=== PATIENT | male | born 1955 | race Caucasian/White ===

== ENCOUNTER 2016-12-23 09:33 | Emergency (ER) | payer SELFPAY ==
--- NOTE | 2016-12-23 10:05 | Emergency Department Record ---
History of Present Illness - General Chief Complaint: Fall Injury Stated Complaint: BACK PAIN/FALL Time Seen by Provider: 12/23/16 09:56 Mode of Arrival: Ambulatory - History of Present Illness Initial Comments: fell over backward off the ladder 3 feet high and landed on driveway. This happened at work in [facility]. 4 pm yesterday and pain got worse throught the night. Patient has lumbar spine pain . No LOC no neck or thoracic spine pain. right pelvix pain and some right lower quad pain. No vomiting and ate this AM without problems banana and coffee Complaint: Fall Onset/Timin -: Days(s) Fall From: From height (distance) Fall Witnessed: No Place Fall Occurred: Home Loss of Consciousness: None Prolonged Down Time?: No Symptoms Prior to Fall: None Location: Back, Pelvis, Buttocks Severity: Severe Severity scale (1-10): >10 Quality: Aching Associated Symptoms: Shortness of breath - Hyder Coma Scale Eye Response: (4) Open spontaneously Motor Response: (6) Obeys commands Verbal Response: (5) Oriented Hyder Total: 15 - Related Data Previous Rx's Medication Instructions Recorded Cyclobenzaprine HCl [Flexeril] 10 mg PO TID #30 tablet 12/23/16 Hydrocodone/Acetaminophen [[place] 1 each PO Q4HR #30 tablet 12/23/16 7.5-325 Tablet] Allergies Allergy/AdvReac Type Severity Reaction Status Date / Time No Known Drug Allergies Allergy Verified 12/23/16 09:48 Travel Screening - Travel/Exposure Within Last 30 Days Have you traveled within the last 30 days?: No - Travel/Exposure Within Last Year Have you traveled outside the [place] in the last year?: No - Additonal Travel Details Have you been exposed to anyone with a communicable illness?: No - Travel Symptoms Symptom Screening: None Review of Systems Reviewed: No additional complaints except as noted below Constitutional: Reports: As per HPI. Denies: Chills, Fever, Malaise, Night sweats, Weakness, Weight change Eyes: Reports: As per HPI. Denies: Eye discharge, Eye pain, Photophobia, Vision change ENT: Reports: As per HPI. Denies: Congestion, Dental pain, Ear pain, Epistaxis , Hearing loss, Throat pain Respiratory: Reports: As per HPI. Denies: Cough, Dyspnea, Hemoptysis, Stridor, Wheezes Cardiovascular: Reports: As per HPI. Denies: Arrhythmia, Chest pain, Dyspnea on exertion, Edema, Murmurs, Orthopnea, Palpitations, Paroxysmal nocturnal dyspnea, Rheumatic Fever, Syncope Endocrine: Reports: As per HPI. Denies: Fatigue, Heat or cold intolerance, Polydipsia, Polyuria Gastrointestinal: Reports: As per HPI. Denies: Abdominal pain, Constipation, Diarrhea, Hematemesis, Hematochezia, Melena, Nausea, Vomiting Genitourinary: Reports: As per HPI. Denies: Dysuria, Frequency, Hematuria, Incontinence, Retention, Testicular pain, Testicular mass, Urgency Musculoskeletal: Reports: As per HPI, Back pain. Denies: Arthralgia, Gout, Joint swelling, Myalgia, Neck pain Skin: Reports: As per HPI. Denies: Bruising, Change in color, Change in hair/ nails, Lesions, Pruritus, Rash Neurological: Reports: As per HPI. Denies: Abnormal gait, Confusion, Headache, Numbness, Paresthesias, Seizure, Tingling, Tremors, Vertigo, Weakness Psychiatric: Reports: As per HPI. Denies: Anxiety, Auditory hallucinations, Depression, Homicidal thoughts, Suicidal thoughts, Visual hallucinations Hematological/Lymphatic: Reports: As per HPI. Denies: Anemia, Blood Clots, Easy bleeding, Easy bruising, Swollen glands Past Medical History - SOCIAL HISTORY Smoking Status: Current every day smoker Alcohol Use: None Drug Use: None - RESPIRATORY Hx Respiratory Disorders: No - CARDIOVASCULAR Hx Cardio Disorders: Yes Comment:: murmer pt was told - NEURO Hx Neuro Disorders: No - GI Hx GI Disorders: No - Hx Genitourinary Disorders: No - ENDOCRINE Hx Endocrine Disorders: No - MUSCULOSKELETAL Hx Musculoskeletal Disorders: No - PSYCH Hx Psych Problems: No - HEMATOLOGY/ONCOLOGY Hx Hematology/Oncology Disorders: No Family Medical History Any Significant Family History?: No Physical Exam - General General Appearance: Alert, Oriented x3, Cooperative, Mild distress - Head Head exam: Normal inspection - Eye Eye exam: Normal appearance, PERRL Pupils: Normal accommodation - ENT ENT exam: Normal exam, Mucous membranes moist, Normal external ear exam, Normal orophraynx, TM's normal bilaterally Ear exam: Normal external inspection. negative: External canal tenderness Nasal Exam: Normal inspection. negative: Discharge, Sinus tenderness Mouth exam: Normal external inspection, Tongue normal Teeth exam: Normal inspection. negative: Dental caries Throat exam: Normal inspection. negative: Tonsillar erythema, Tonsillar exudate - Neck Neck exam: Normal inspection, Full ROM. negative: Tenderness - Respiratory Respiratory exam: Normal lung sounds bilaterally. negative: Respiratory distress - Cardiovascular Cardiovascular Exam: Regular rate, Normal rhythm, Normal heart sounds - GI/Abdominal GI/Abdominal exam: Soft, Normal bowel sounds. negative: Tenderness - Rectal Rectal exam: Deferred - exam: Deferred - Extremities Extremities exam: Normal inspection, Full ROM, Normal capillary refill. negative: Tenderness - Back Back exam: Reports: Normal inspection, Full ROM, Muscle spasm, Tenderness ( lumbar spine and right side of pelvis). Denies: Rash noted - Neurological Neurological exam: Alert, Normal gait, Oriented X3, Reflexes normal - Psychiatric Psychiatric exam: Normal affect, Normal mood - Skin Skin exam: Dry, Intact, Normal color, Warm Course Vital Signs 12/23/16 09:40 Temperature 97.8 F Pulse Rate 70 Respiratory 16 Rate Blood Pressure 123/75 Pulse Ox 96 Medical Decision Making - Data Complexity MDM Data: X-Ray Ordered and/or Reviewed (No fractures seen) Disposition Clinical Impression: Contusion, back Qualifiers: Encounter type: initial encounter Laterality: unspecified laterality Qualified Code(s): S20.229A - Contusion of unspecified back wall of thorax, initial encounter Disposition: Home, Self-Care Condition: (2) Stable Instructions: Contusion in Adults (ED) Additional Instructions: heat to back three times a day Prescriptions: Hydrocodone/Acetaminophen [[place] 7.5-325 Tablet] 1 each PO Q4HR #30 tablet Cyclobenzaprine HCl [Flexeril] 10 mg PO TID #30 tablet Forms: Patient Portal Access Time of Disposition: 11:13 Quality - Quality Measures Quality Measures: N/A - Blood Pressure Screening Blood Pressure Classification: Pre-Hypertensive BP Reading Systolic Measurement: 123 Diastolic Measurement: 75 Screening for High Blood Pressure: < Pre-Hypertensive BP, F/U Documented > [ G8950] Pre-Hypertensive Follow-up Interventions: Referral to alternative/primary care provider.
[2016-12-23] MEDS: ONDANSETRON HCL IV 4 MG/2 ML VIAL IM ONE (10:17)
[2016-12-23] MEDS: HYDROMORPHONE HCL 1MG/ML **SYRINGE IM ONE (10:18)
[2016-12-23] MEDS: HYDROCODONE/APAP 7.5/325MG TABLET PO ONE (11:23)
--- NOTE | 2016-12-24 09:12 | RADIOLOGY REPORT ---
EXAM: LUMBAR SPINE COMPLETE HISTORY: LOWER BACK PAIN EXTENDING ANTERIORLY TO THE LEVEL OF THE GROIN ONE DAY POST FALL FROM STEP LADDER. TECHNIQUE: AP, lateral, and both oblique views of the lumbar spine were obtained as well as spot lateral views of the thoracolumbar and lumbosacral junctions. Comparison: Radiographic examination of the lumbar spine dated 06/12/13. Same day three views of the pelvis. Encounter: Initial. FINDINGS: There are five non-rib bearing lumbar type vertebra. There is borderline osteopenia. The lumbar vertebral bodies are grossly normal in alignment and height. No acute fracture nor destructive bone lesion is seen. Mild multilevel degenerative disk/end plate changes are present most pronounced at the L3-L4 level. These are not significantly changed given differences in technique. Multilevel bilateral facet arthropathy is also identified most pronounced at the lower lumbar levels where they are moderate in degree. There are mild degenerative changes of the sacroiliac joints. There is atherosclerosis of the abdominal aorta, the pattern of which is unchanged. IMPRESSION: 1. NO RADIOGRAPHIC EVIDENCE OF ACUTE OSSEOUS OR LIGAMENTOUS INJURY WITHOUT SIGNIFICANT CHANGE SINCE 06/12/13. 2. DEGENERATIVE CHANGES, DISCUSSED ABOVE. 3. 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 [facility]OB [facility]BER: [id number] [facility]
--- NOTE | 2016-12-24 09:16 | RADIOLOGY REPORT ---
EXAM: PELVIS COMPLETE HISTORY: LOWER BACK PAIN WRAPPING AROUND ANTERIORLY TO GROIN LEVEL ONE DAY POST FALLING OFF STEP LADDER. TECHNIQUE: AP and both oblique views of the pelvis were obtained. Comparison: Same day radiographic examination of the lumbar spine. Encounter: Initial. FINDINGS: There is normal bone mineralization. No acute fracture, dislocation , or destructive bone lesion is seen. There are degenerative changes of each hip, mild in degree, left greater than right. Mild degenerative changes of the sacroiliac joints and pubic symphysis. Mild to moderate degenerative changes of the lower lumbar spine. No focal soft tissue abnormality is seen. IMPRESSION: 1. NO ACUTE BONE NOR JOINT ABNORMALITY. 2. DEGENERATIVE CHANGES, DISCUSSED ABOVE. [facility]BER: [id number] [facility]
== END 2016-12-23 11:33 | disposition home or self-care (01) ==
LOC: ER 09:33
DX: S20.229A Contusion of unspecified back wall of thorax, initial encounter (principal); R06.02 Shortness of breath; R10.31 Right lower quadrant pain; W11.XXXA Fall on and from ladder, initial encounter; Y92.008 Other place in unspecified non-institutional (private) residence as the place of occurrence of the external cause; Y99.0 Civilian activity done for income or pay
CPT/HCPCS: 99283; 96372; 99284; 72110; 72190; J2405; J1170

== ENCOUNTER 2017-12-19 14:15 | Emergency (ER) | payer SELFPAY ==
[2017-12-19] MEDS ORDERED: MORPHINE SULFATE 10 MG/ML VIAL IVP ONE ×2 (16:44→18:28)
[2017-12-19] MEDS ORDERED: DIAZEPAM 5 MG TABLET PO ONE (16:44)
--- NOTE | 2017-12-19 16:46 | Emergency Department Record ---
History of Present Illness - General Chief Complaint: Back Pain/Injury Time Seen by Provider: 12/19/17 16:39 Source: Patient, Family Mode of Arrival: Ambulatory Limitations: No limitations - History of Present Illness Initial Comments: 62 yo male presents with one week of lower back pain. The onset was over the last two weeks. It started with lifting heavy sheet rock sheets. The pain has gradually worsened each day. It is better if sitting still. It hurts to move, twist or bend. No pain down the leg currently. No changes in bowel or bladder function. No hematuria. No abdominal pain. The area in the right lumbar lower area is tender. MD Complaint: Back pain, Back injury Onset/Timin -: Week(s) (1) Place: Work Radiation: None Severity: Moderate Quality: Aching, Sharp Consistency: Constant Improves With: Immobilization Associated Symptoms: Denies other symptoms - Related Data Previous Rx's Medication Instructions Recorded Cyclobenzaprine HCl [Flexeril] 10 mg PO TID #30 tablet 12/23/16 Hydrocodone/Acetaminophen [[place] 1 each PO Q4HR #30 tablet 12/23/16 7.5-325 Tablet] Cyclobenzaprine HCl [Flexeril] 10 mg PO TID #20 tablet 12/19/17 Hydrocodone/APAP 7.5/325Mg [[place] 1 each PO Q6H #12 tab 12/19/17 7.5MG/325Mg] Allergies Allergy/AdvReac Type Severity Reaction Status Date / Time bee venom protein (honey bee) Allergy DIFFICULTY Verified 12/19/17 16:23 BREATHING Travel Screening - Travel/Exposure Within Last 30 Days Have you traveled within the last 30 days?: No - Travel/Exposure Within Last Year Have you traveled outside the [place] in the last year?: No - Additonal Travel Details Have you been exposed to anyone with a communicable illness?: No - Travel Symptoms Symptom Screening: None Review of Systems Constitutional: Denies: Chills, Fever, Malaise, Weakness Eyes: Denies: Eye discharge ENT: Denies: Congestion, Throat pain Respiratory: Denies: Cough, Dyspnea, Hemoptysis, Wheezes Cardiovascular: Denies: Chest pain, Palpitations, Syncope Endocrine: Denies: Fatigue Gastrointestinal: Denies: Abdominal pain, Diarrhea, Nausea, Vomiting Genitourinary: Denies: Dysuria, Frequency, Hematuria Musculoskeletal: Reports: Back pain, Myalgia. Denies: Arthralgia, Joint swelling, Neck pain Skin: Denies: Bruising, Change in color, Rash Neurological: Denies: Headache, Numbness, Weakness Psychiatric: Denies: Anxiety Hematological/Lymphatic: Denies: Blood Clots, Easy bleeding, Easy bruising Past Medical History - SOCIAL HISTORY Smoking Status: Current every day smoker Alcohol Use: None Drug Use: None - RESPIRATORY Hx Respiratory Disorders: No - CARDIOVASCULAR Hx Cardio Disorders: Yes Comment:: blaine pt was told - NEURO Hx Neuro Disorders: No - GI Hx GI Disorders: No - Hx Genitourinary Disorders: No - ENDOCRINE Hx Endocrine Disorders: No - MUSCULOSKELETAL Hx Musculoskeletal Disorders: No - PSYCH Hx Psych Problems: No - HEMATOLOGY/ONCOLOGY Hx Hematology/Oncology Disorders: No Family Medical History Any Significant Family History?: No Physical Exam - General General Appearance: Alert, Oriented x3, Cooperative, No acute distress Limitations: No limitations - Head Head exam: Normal inspection - Eye Eye exam: Normal appearance. negative: Conjunctival injection, Scleral icterus - ENT ENT exam: Normal exam Ear exam: Normal external inspection Nasal Exam: Normal inspection Mouth exam: Normal external inspection Teeth exam: Normal inspection - Neck Neck exam: Normal inspection - Respiratory Respiratory exam: Normal lung sounds bilaterally. negative: Respiratory distress - Cardiovascular Cardiovascular Exam: Regular rate, Normal rhythm, Normal heart sounds - GI/Abdominal GI/Abdominal exam: Soft. negative: Distended, Guarding, Hernia, Pulsatile mass , Rebound, Rigid, Tenderness - Rectal Rectal exam: Deferred - exam: Deferred - Extremities Extremities exam: Normal inspection. negative: Pedal edema, Tenderness - Back Back exam: Reports: Paraspinal tenderness, Tenderness, Vertebral tenderness. Denies: CVA tenderness (R), CVA tenderness (L) - Neurological Neurological exam: Alert, Normal gait (Slow but no weakness or foot drop), Oriented X3. negative: Altered, Motor sensory deficit - Psychiatric Psychiatric exam: Normal affect, Normal mood - Skin Skin exam: Dry, Intact, Normal color, Warm. negative: Cyanosis Course Vital Signs 12/19/17 16:25 Temperature 97.8 F Pulse Rate [ 80 Pulse Ox Probe] Respiratory 16 Rate Blood Pressure 125/82 [Left Arm] Pulse Ox 98 - Reevaluation(s) Reevaluation #1: XR was reviewed No lumbar degenerative changes The examination is consistent with musculo-skeletal with tenderness localized and pain with movement 12/19/17 18:36 Medical Decision Making - Lab Data Result diagrams: 12/19/17 16:43 12/19/17 16:43 Disposition Disposition: Discharge Clinical Impression: Lumbar spine strain Qualifiers: Encounter type: initial encounter Qualified Code(s): S39.012A - Strain of muscle, fascia and tendon of lower back, initial encounter Disposition: Home, Self-Care Condition: (1) Good Instructions: Low Back Strain (ED) Additional Instructions: Rest avoiding lifting, bending, twisting Call your doctor for a recheck this week If your pain does not resolve you may require further work up. Prescriptions: Cyclobenzaprine HCl [Flexeril] 10 mg PO TID #20 tablet Hydrocodone/APAP 7.5/325Mg [[place] 7.5MG/325Mg] 1 each PO Q6H #12 tab Forms: Patient Portal Access Time of Disposition: 19:00 Quality - Quality Measures Quality Measures: N/A - Blood Pressure Screening Does Patient Have Any of the Following: No Blood Pressure Classification: Hypertensive Reading Systolic Measurement: 125 Diastolic Measurement: 92 Screening for High Blood Pressure: < Pre-Hypertensive BP, F/U Documented > [ G8950] Pre-Hypertensive Follow-up Interventions: Referral to alternative/primary care provider.
[2017-12-19 16:52] LABS: BASO % 0.7 % (0-6); GRAN % 54.5 % (47-80); HEMATOCRIT 49.2 % (42.0-52.0); HEMOGLOBIN 16.6 gm/dl (14.0-18.0); LYMPH % 36.5 % (16-45); MEAN CELL VOLUME 90.8 fl (81-97); MEAN CORPUSCULAR HEMOGLOBIN 30.6 pg (27-33); MEAN CORPUSCULAR HGB CONC 33.7 g/dl (32-36); MEAN PLATELET VOLUME 10.4 fl (7.4-10.4); MONO % 6.3 % (0-9); PLATELET COUNT 307 K/uL (130-400); RED BLOOD COUNT 5.42 M/uL (4.40-5.70); RED CELL DISTRIBUTION WIDTH 12.8 % (11.5-14.5); WHITE BLOOD COUNT W/O DIFF 11.3 K/uL (4.2-12.2)
[2017-12-19 17:04] LABS: BLOOD UREA NITROGEN 14 mg/dL (8-23); CREATININE 0.9 mg/dL (0.7-1.2); EST GLOMERULAR FILTRATION RATE > 60 mL/min
[2017-12-19 17:07] LABS: GLUCOSE,RANDOM 97 mg/dL (74-109)
[2017-12-19] MEDS ORDERED: KETOROLAC 30 MG/ML VIAL IVP ONE (18:28)
[2017-12-19] MEDS ORDERED: CYCLOBENZAPRINE 10MG TABLET PO ONE (19:21)
[2017-12-19] MEDS ORDERED: HYDROCODONE/APAP 7.5/325MG TABLET PO ONE (19:21)
--- NOTE | 2017-12-21 06:47 | RADIOLOGY REPORT ---
DATE: 12/19/2017. EXAM: LUMBAR SPINE. HISTORY: The patient has low back pain. TECHNIQUE: Five views of the lumbar spine are provided. COMPARISON: Comparison study dated 12/23/2016. FINDINGS: The vertebral body height, contour, and AP alignment of the lumbar spine are within normal limits. Mild to moderate disc space height loss and endplate sclerosis is noted at the L3-L4 and L2-L3 disc space levels which appears unchanged with respect to the prior examination. Facet arthropathy is noted. Bilateral pedicles, posterior spinous processes, and transverse processes of the lumbar spine are within normal limits. Degenerative change of the sacroiliac joints is noted. IMPRESSION: DEGENERATIVE DISC DISEASE OF THE LUMBAR SPINE IS SUSPECTED DISCUSSED ABOVE. THIS FINDING APPEARS SIMILAR TO THE PRIOR EXAMINATION. NO RADIOGRAPHIC EVIDENCE OF AN ACUTE PROCESS OF THE LUMBAR SPINE. JOB NUMBER: [id number] [facility]
== END 2017-12-19 19:53 | disposition home or self-care (01) ==
LOC: ER 14:15
DX: S39.012A Strain of muscle, fascia and tendon of lower back, initial encounter (principal); X50.0XXA Overexertion from strenuous movement or load, initial encounter; F17.210 Nicotine dependence, cigarettes, uncomplicated; Y99.0 Civilian activity done for income or pay
CPT/HCPCS: 99284 ×2; 96376; 96374; 96375; 85025; 80048; 72110; J3490; J1885; J2270

== ENCOUNTER 2018-11-11 09:04 | Emergency (ER) | payer BC ==
[2018-11-11] MEDS ORDERED: KETOROLAC 30 MG/ML VIAL IM ONE (09:15)
--- NOTE | 2018-11-11 09:25 | Emergency Department Record ---
History of Present Illness - General Chief complaint: Pain Stated complaint: LEFT SHOULDER PAIN Time Seen by Provider: 11/11/18 09:11 Source: Patient Mode of Arrival: Ambulatory Limitations: No limitations - History of Present Illness Initial comments: The patient is here due to L shoulder pain for 2 days. He was lifting scaffolding and felt a "pop" and pain in his L shoulder. Since he has had significant pain with ANY movement or lifting. The patient denies any CP, SOB, neck pain or L arm numbness. MD Complaint: Extremity pain Onset/Timin -: Days(s) Location: Left, Shoulder History of Same: No Severity scale (1-10): 8 Quality: Aching, Burning Consistency: Constant, Intermittent - Related Data Previous Rx's Medication Instructions Recorded Cyclobenzaprine HCl [Flexeril] 10 mg PO TID PRN #20 tablet 11/11/18 Naproxen [Naprosyn] 500 mg PO BID #14 tablet. 11/11/18 Allergies Allergy/AdvReac Type Severity Reaction Status Date / Time bee venom protein (honey bee) Allergy DIFFICULTY Verified 11/11/18 09:12 BREATHING Travel Screening - Travel/Exposure Within Last 30 Days Have you traveled within the last 30 days?: No - Travel/Exposure Within Last Year Have you traveled outside the [place] in the last year?: No - Additonal Travel Details Have you been exposed to anyone with a communicable illness?: No - Travel Symptoms Symptom Screening: None Review of Systems Constitutional: Denies: Chills, Fever Eyes: Denies: Eye discharge ENT: Denies: Congestion Respiratory: Denies: Cough, Dyspnea Past Medical History - SOCIAL HISTORY Smoking Status: Current every day smoker Alcohol Use: None Drug Use: None - RESPIRATORY Hx Respiratory Disorders: No - CARDIOVASCULAR Hx Cardio Disorders: Yes Comment:: blaine pt was told - NEURO Hx Neuro Disorders: No - GI Hx GI Disorders: No - Hx Genitourinary Disorders: No - ENDOCRINE Hx Endocrine Disorders: No - MUSCULOSKELETAL Hx Musculoskeletal Disorders: No - PSYCH Hx Psych Problems: No - HEMATOLOGY/ONCOLOGY Hx Hematology/Oncology Disorders: No Family Medical History Any Significant Family History?: Yes Physical Exam - General General Appearance: Alert, Oriented x3, Cooperative, No acute distress - Head Head exam: Atraumatic, Normocephalic, Normal inspection - Eye Eye exam: Normal appearance, PERRL - ENT Throat exam: Normal inspection. negative: Tonsillar erythema, Tonsillar exudate - Neck Neck exam: Normal inspection, Full ROM. negative: Lymphadenopathy, Meningismus, Tenderness - Respiratory Respiratory exam: Normal lung sounds bilaterally. negative: Respiratory distress - Cardiovascular Cardiovascular Exam: Regular rate, Normal rhythm, Normal heart sounds - GI/Abdominal GI/Abdominal exam: Soft, Normal bowel sounds. negative: Tenderness - Extremities Extremities exam: Normal inspection, Tenderness (There is significant tenderness to palpation over the L anterior shoulder.), Other (The L arm is NVI.). negative: Full ROM (There is decreased flexion and extension due to pain. The patient is able to abduct to 90 degrees with pain.), Joint swelling Course Vital Signs 11/11/18 09:05 Temperature 97.8 F Pulse Rate 84 Respiratory 16 Rate Blood Pressure 136/79 Pulse Ox 98 - Reevaluation(s) Reevaluation #1: I did discuss the need for F/U with ORtho. I will refer the patient to Dr. Omer for further evaluation. 11/11/18 10:00 Medical Decision Making - Data Complexity MDM Data: X-Ray Ordered and/or Reviewed - Radiology Data Radiology results: Report reviewed (L shoulder: Neg for any acute issues per Rad.) Disposition Disposition: Discharge Clinical Impression: Shoulder pain, left Qualifiers: Chronicity: acute Qualified Code(s): M25.512 - Pain in left shoulder Disposition: Home, Self-Care Condition: (2) Stable Instructions: Shoulder Pain (ED) Additional Instructions: Please use ice to the L shoulder when possible and take Naprosyn and Flexeril as directed. Please see Dr. Omer [facility] next week as directed. Return to the ER for any worsening issues. Prescriptions: Cyclobenzaprine HCl [Flexeril] 10 mg PO TID PRN #20 tablet PRN Reason: Pain Naproxen [Naprosyn] 500 mg PO BID #14 tablet. Referrals: [facility] [Provider Group] Forms: Patient Portal Access Time of Disposition: 10:04 Quality - Quality Measures Quality Measures: N/A - Blood Pressure Screening View Details: Yes Does Patient Have Any of the Following: No Blood Pressure Classification: Pre-Hypertensive BP Reading Systolic Measurement: 136 Diastolic Measurement: 79 Screening for High Blood Pressure: < Pre-Hypertensive BP, F/U Documented > [G8950] Pre-Hypertensive Follow-up Interventions: Referral to alternative/primary care provider.
--- NOTE | 2018-11-13 17:18 | RADIOLOGY REPORT ---
EXAM: SHOULDER, LEFT HISTORY: LEFT SHOULDER PAIN WITH RADIATION DOWN THE LEFT ARM FOR THE PAST THREE DAYS. 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 TECHNIQUE: Three views of the left shoulder were obtained. COMPARISON: None. FINDINGS: The bones appear intact. There is no acute fracture, dislocation, or destructive process. There are minor arthritic changes of the AC joint. Tiny marginal osteophytes are present at the glenoid. IMPRESSION: 1. MINOR ARTHRITIC CHANGES. 2. NO ACUTE LEFT SHOULDER PATHOLOGY. [facility]BER: [id number] [facility]
== END 2018-11-11 10:14 | disposition home or self-care (01) ==
LOC: ER 09:04
DX: G89.11 Acute pain due to trauma (principal); M25.512 Pain in left shoulder; X50.0XXA Overexertion from strenuous movement or load, initial encounter; F17.210 Nicotine dependence, cigarettes, uncomplicated
CPT/HCPCS: 99283; 96372; 99284; 73030; J1885